=== PATIENT | female | born 1960 | race Caucasian/White ===

== ENCOUNTER 2022-11-16 23:11 | Emergency (ER) | payer OTHER ==
[~2022-11-16] VITALS: Ht 160 cm; Wt 68.0 kg
[~2022-11-16 23:11] MED LIST: FIORICET 50-301 EACH; NORFLEX100MG; SIMVASTATIN20 MG; SINGULAIR4 MG; SYMBICORT 16010.2 GM IH; TUSSIONEX PENNKI5 ML PO; ULTRAM50 MG; VISTARIL50 MG
[2022-11-16] MEDS ORDERED: ZANAFLEX4 M1 (23:51)
== END 2022-11-17 08:15 | disposition home or self-care (01) ==
LOC: ER 23:11
DX: R10.9 Unspecified abdominal pain (principal); Z88.0 Allergy status to penicillin; Z88.6 Allergy status to analgesic agent

== ENCOUNTER 2023-05-29 00:30 | Emergency (ER) | payer OTHER ==
[~2023-05-29] VITALS: Ht 160 cm; Wt 68.0 kg
[~2023-05-29 00:30] MED LIST changes: +ZANAFLEX4 M1
[2023-05-29] MEDS ORDERED: ZANAFLEX4 MG PO (04:00)
== END 2023-05-29 04:13 ==
LOC: ER
DX: S39.82XA Other specified injuries of lower back, initial encounter (principal); W19.XXXA Unspecified fall, initial encounter; Y93.89 Activity, other specified; Y92.89 Other specified places as the place of occurrence of the external cause; Y99.8 Other external cause status; M54.50 Low back pain, unspecified; G89.11 Acute pain due to trauma; Z88.0 Allergy status to penicillin; Z88.6 Allergy status to analgesic agent
CPT/HCPCS: 72100; 72220; 96372; 99283; J2360